=== PATIENT | male | born 1965 | race Caucasian/White ===

== ENCOUNTER → 2016-09-27 | Day surgery (SDC) | payer BC ==
[~2016-09-27] VITALS: Ht 180.3 cm; Wt 104.1 kg
[~2016-09-27] MED LIST: ADVAIR 500-501 EACH INH; GLUCOPHAGE500 MG PO; OMEPRAZOLE40 MG PO; PRAVACHOL20 MG PO; PRINIVIL (ZESTR20 MG PO; SINGULAIR10 MG PO
== END | disposition disaster alternative care site (69) ==
LOC: GPOC 09-23 15:00 → GEND 06:52 → GPOC 15:00
PROC: 0D758ZZ Dilation of Esophagus, Via Natural or Artificial Opening Endoscopic (ICD-10-PCS; principal; 2016-09-27)
PROC: 0DB58ZX Excision of Esophagus, Via Natural or Artificial Opening Endoscopic, Diagnostic (ICD-10-PCS; 2016-09-27)
DX: K22.2 Esophageal obstruction (principal); K44.9 Diaphragmatic hernia without obstruction or gangrene; E11.9 Type 2 diabetes mellitus without complications; J45.909 Unspecified asthma, uncomplicated; E78.00 Pure hypercholesterolemia, unspecified; I10 Essential (primary) hypertension; Z87.891 Personal history of nicotine dependence; Z79.899 Other long term (current) drug therapy; Z98.890 Other specified postprocedural states
CPT/HCPCS: C1726; J2001; J7030